=== PATIENT | female | born 1975 | race Caucasian/White ===

== ENCOUNTER → 2025-08-23 14:51 | Outpatient (REF) | payer OTHER, SELFPAY | LOC: MRI 3T 14:51 | PROVIDERS: ATTENDING PHYSICIAN Physician Assistant | DX: M54.12 Radiculopathy, cervical region (principal) | CPT/HCPCS: 72141 ==

== ENCOUNTER → 2025-08-24 12:30 | Outpatient (REF) | payer OTHER, SELFPAY | LOC: RAD 12:30 | PROVIDERS: ATTENDING PHYSICIAN Physician Assistant | DX: M79.89 Other specified soft tissue disorders (principal) | CPT/HCPCS: 93971 ==